=== PATIENT | male | born 1950 | race African-American/Black ===

== ENCOUNTER 2025-01-07 16:16 | Inpatient (IN) | payer MEDICARE ==
[2025-01-07 17:23] LABS: #Basophils Less than 0.03 10x3/uL (0.0-0.2); #Eosinophils 0.06 10x3/uL (0.0-0.5); #Monocytes 0.62 10x3/uL (0.0-1.1); #Neutrophils 6.06 10x3/uL (1.5-8.4); %Basophils 0.2 % (0.0-2.0); %Eosinophils 0.7 % (0.0-6.0); %Lymphocytes 18.2 % (18.0-47.0); %Monocytes 7.5 % (0.0-10.0); Mean Corpuscular HGB CONC 33.3 g/dL (32.0-36.0); Mean Corpuscular Hemoglobin 30.4 pg (27.0-33.0); Mean Corpuscular Volume 91.1 fL (81.2-95.1); Platelet Count 192 10x3/uL (150-450); Red Blood Cell (RBC) Count 4.28 10x6/uL (4.32-5.72)
[2025-01-07 17:46] LABS: ALT (SGPT) 18 U/L (Less than 45); AST (SGOT) 26 U/L (11-34); Albumin 4.7 g/dL (3.1-4.5); Alkaline Phosphatase 55 U/L (40-110); Anion Gap 16 mmol/L (10-20); BUN (Urea Nitrogen) 34 mg/dL (8.4-25.7); Bilirubin, Total 0.4 mg/dL (0.3-1.2); CK (CPK) 231 U/L (30-200); Calc. Creatinine Clearance 0 mL/min (70-130); Calcium 9.9 mg/dL (7.8-10.44); Carbon Dioxide 24 mmol/L (23-31); Chloride 107 mmol/L (98-107); Estimated GFR 23; Globulin 3.9 g/dL (2.4-3.5); Glucose 122 mg/dL (83-110); Lipase 29 U/L (8-78); Magnesium 2.1 mg/dL (1.6-2.6); Potassium 3.8 mmol/L (3.5-5.1); Protein, Total 8.6 g/dL (5.8-8.1); Sodium 143 mmol/L (136-145)
[2025-01-07 18:06] LABS: Bilirubin Neg (Negative); Blood, Urine 10 (Negative); Clarity Clear (Clear); Glucose, Urine (Dipstick) Normal (Negative); Ketone, Urine Negative (Negative); Leukocyte Negative (Negative); Nitrite Negative (Negative); Protein, Urine (Dipstick) 30 mg/dl (Neg-Trace); Specific Gravity, Urine 1.005 (1.005-1.030); Urobilinogen Normal mg/dL (Less than 2); pH, Urine 6.5 (5.0-9.0)
[2025-01-07 18:28] LABS: Bacteria/HPF Rare-Few HPF (None Seen); CAUTI Indications for Culture Pelvic or flank pain; Mucous/LPF Rare LPF (<2+); RBC/HPF 0-3 HPF (0-3); Squamous Epithelial 0-3 HPF (0-3); WBC/HPF 0-3 HPF (0-3)
[2025-01-07 18:29] LABS: Urine Culture Reflex No No
[2025-01-08] MEDS: NIFEdipine XL 60 MG ER.TAB PO SCH (00:38)
[2025-01-08] MEDS: Sodium Chloride 0.9% 1,000 ML IV SCH ×2 (00:38→12:06)
[2025-01-08 03:42] LABS: #Basophils 0.03 10x3/uL (0.0-0.2); #Eosinophils 0.05 10x3/uL (0.0-0.5); #Monocytes 0.63 10x3/uL (0.0-1.1); #Neutrophils 3.55 10x3/uL (1.5-8.4); %Basophils 0.5 % (0.0-2.0); %Eosinophils 0.8 % (0.0-6.0); %Lymphocytes 34.6 % (18.0-47.0); %Monocytes 9.6 % (0.0-10.0); %Neutrophils 54.3 % (40.0-75.0); Hematocrit 31.3 % (38.8-50.0); Hemoglobin 10.7 g/dL (13.5-17.5); Mean Corpuscular HGB CONC 34.2 g/dL (32.0-36.0); Mean Corpuscular Hemoglobin 31.3 pg (27.0-33.0); Mean Corpuscular Volume 91.5 fL (81.2-95.1); Mean Platelet Volume 9.7 fL (7.4-10.4); Platelet Count 158 10x3/uL (150-450); Red Blood Cell (RBC) Count 3.42 10x6/uL (4.32-5.72); White Blood Cell (WBC) Count 6.53 10x3/uL (3.5-10.5)
[2025-01-08 03:57] LABS: Anion Gap 14 mmol/L (10-20); BUN (Urea Nitrogen) 30 mg/dL (8.4-25.7); CK (CPK) 718 U/L (30-200); Calc. Creatinine Clearance 43 mL/min (70-130); Calcium 8.9 mg/dL (7.8-10.44); Carbon Dioxide 20 mmol/L (23-31); Chloride 112 mmol/L (98-107); Estimated GFR 35; Glucose 119 mg/dL (83-110); Potassium 3.6 mmol/L (3.5-5.1); Sodium 142 mmol/L (136-145)
[2025-01-08] MEDS ORDERED: Enoxaparin 40 MG (0.4 mL) SYRINGE ONE (07:24)
[2025-01-08] MEDS ORDERED: NIFEdipine XL 30 MG ER.TAB ONE (07:24)
[2025-01-08] MEDS: Enoxaparin 40 MG (0.4 mL) SYRINGE SC SCH (09:05)
[2025-01-08] MEDS: Docusate 100 MG CAP PO SCH (09:05)
[2025-01-08] MEDS ORDERED: Dextrose 50% Abboject 50 ML SYRINGE SLOW IVP PRN (11:45)
[2025-01-08] MEDS ORDERED: Glucagon 1 MG/ML KIT IM PRN (11:45)
[2025-01-08] MEDS ORDERED: Insulin Lispro 100 UNIT/ML 10 ML VIAL SC PRN (11:45)
[2025-01-08] MEDS ORDERED: Dextrose 5% in Water 1,000 ML IV PRN (11:45)
[2025-01-09 05:36] LABS: Hematocrit 34.2 % (38.8-50.0); Hemoglobin 11.7 g/dL (13.5-17.5); Mean Corpuscular HGB CONC 34.2 g/dL (32.0-36.0); Mean Corpuscular Hemoglobin 31.5 pg (27.0-33.0); Mean Corpuscular Volume 92.2 fL (81.2-95.1); Mean Platelet Volume 10.1 fL (7.4-10.4); Platelet Count 167 10x3/uL (150-450); RBC Distribution Width 12.4 % (11.5-14.5); Red Blood Cell (RBC) Count 3.71 10x6/uL (4.32-5.72); White Blood Cell (WBC) Count 4.79 10x3/uL (3.5-10.5)
[2025-01-09 05:50] LABS: Anion Gap 12 mmol/L (10-20); BUN (Urea Nitrogen) 16 mg/dL (8.4-25.7); CK (CPK) 857 U/L (30-200); Calc. Creatinine Clearance 57 mL/min (70-130); Carbon Dioxide 22 mmol/L (23-31); Chloride 112 mmol/L (98-107); Estimated GFR 48; Glucose 95 mg/dL (83-110); Potassium 4.2 mmol/L (3.5-5.1); Sodium 142 mmol/L (136-145)
[2025-01-09 07:27] LABS: Eosinophils 4 % (0-10); Lymphocytes 63 % (21-51); MDiff Complete? YES; Monocytes 3 % (0-10); Neutrophil 29 % (42-75); Ovalocytes SLIGHT = 2-5 cells (100X) (0-1/hpf); Platelet Adequacy Comment Appears Adequate; Reactive Lymphocytes 1 % (0-10); Reflex for Review?? YES
[2025-01-09] MEDS: Sodium Chloride 0.9% 1,000 ML IV SCH (08:51)
[2025-01-09 11:04] VITALS: BP 143/67; TEMP 98
[2025-01-09 13:46] LABS: Anion Gap 10 mmol/L (10-20); BUN (Urea Nitrogen) 13 mg/dL (8.4-25.7); CK (CPK) 687 U/L (30-200); Calc. Creatinine Clearance 65 mL/min (70-130); Calcium 8.7 mg/dL (7.8-10.44); Carbon Dioxide 25 mmol/L (23-31); Chloride 110 mmol/L (98-107); Estimated GFR 57; Glucose 86 mg/dL (83-110); Potassium 4.4 mmol/L (3.5-5.1); Sodium 141 mmol/L (136-145)
[2025-01-09 13:53] LABS: Hemoglobin A1c 5.9 % (4.0-6.0)
== END 2025-01-09 15:34 | disposition home or self-care (01) | DRG 683 ==
LOC: CSHERS 16:16 → CSHERHOLD 18:44 → OBSVTOIN 01-08 11:48 → CSHTELE 01-08 13:33
PROVIDERS: ADMIT Internal Medicine; ATTEND Family Medicine
DX: N17.9 Acute kidney failure, unspecified (principal); M62.82 Rhabdomyolysis; E86.1 Hypovolemia; I10 Essential (primary) hypertension; E78.5 Hyperlipidemia, unspecified; Z79.899 Other long term (current) drug therapy
CPT/HCPCS: 36415; 36416; 80048; 80053; 81001; 82550; 83036; 83690; 83735; 85025; 85060; 93005; 96360; 96361; 96372; G0378; J1650; J7030